=== PATIENT | female | born 1950 | race Caucasian/White ===

== ENCOUNTER → 2017-01-27 | Outpatient (CLI) | payer OTHER ==
[~2017-01-27] MED LIST: ASCO500T PO; ASPI81TA85 PO; ATEN25TA PO; ATOR1TAB19 PO; CALC1TAB60 PO; FISH1000 PO; FLAG500T PO; GARL500C5 PO; GLUC1CAP10 PO; LEVA1TAB2 PO; LEVO112T2 PO; NATU400T PO; THERSOL2 OU; VESI10TA2 PO; VITA200015 PO; VITMTA PO; [UNRECOGNIZED DRUG - CODE] PO
--- NOTE | 2017-02-04 08:07 | SLEEPCENT ---
DATE OF PROCEDURE: 01/27/2017 ORDERED BY: Melisa Langley. Nocturnal polysomnography was performed for evaluation of this patient with sleep apnea syndrome symptoms and snoring. 7 hours and 37 minutes of data were reviewed. There were 362 minutes of sleep identified. Sleep latency was short at 5 minutes Rapid eye movement (REM) latency was delayed at 167 minutes. Sleep architecture showed fragmentation. Progression was maintained. There were 3 REM periods appreciated. Overall sleep efficiency was 80.9%. The patient's EKG showed a sinus rhythm with an average heart rate of 55 beats per minute. EEG showed reasonably normal wave forms for awake and sleep. There were 52 respiratory events identified of 10 seconds in duration or greater for an apnea-hypopnea index of 8.6. The events were primarily obstructive not exclusive to sleep stage, more frequent but not exclusive to the supine posture. Arousals from respiratory events occurred 8.3 times per hour and oxygen desaturations were seen well into the 70s. There was also some limb activity appreciated on the EMG with frequent trains of events. Limb movement arousal index was 8.3. IMPRESSION: 1. Obstructive sleep apnea syndrome, mild (G47.33). Apnea-hypopnea index 8.6. 2. Periodic limb movement disorder (G47.61). Limb movement arousal index 8.3. RECOMMENDATION: The patient should be encouraged to return to the sleep disorder center for pressure therapy. In the interim, alcohol and sedative avoidance should be practiced and caution exercised during the operation of motor vehicles. Pending results of pressure therapy, interventions to reduce the frequency arousal from limb activity may also be helpful. cc: Ramona Mendez MD
== END ==
LOC: M SLEEP 19:38
PROVIDERS: ATTEND Nurse Practitioner Adult Health
DX: G47.30 Sleep apnea, unspecified (principal)

== ENCOUNTER 2017-02-19 10:43 | Observation (INO) | payer MEDICARE, OTHER ==
[~2017-02-19] VITALS: Ht 154.9 cm; Wt 49.8 kg
[~2017-02-19 10:43] MED LIST changes: -ASCO500T PO; -GARL500C5 PO; -GLUC1CAP10 PO; -THERSOL2 OU; -[UNRECOGNIZED DRUG - CODE] PO
[2017-02-19] MEDS ORDERED: NS 1,000 ML IV ONE (11:00)
[2017-02-19 11:29] LABS: BASO % 0.5 % (0.0-1.0); EOS # 0.1 K/mm3 (0.0-0.50); EOS % 1.1 % (0.0-3.0); LARGE UNSTAINED CELL # 0.1 K/mm3 (0.0-0.4); LARGE UNSTAINED CELL % 1.5 % (0.0-4.0); LYMPH # 1.3 K/mm3 (1.5-4.5); LYMPH % 21.8 % (24.0-44.0); MEAN CORPUSCULAR HGB CONC 34.6 g/dl (32.0-36.5); MEAN CORPUSCULAR VOLUME 92.4 fl (80.0-96.0); MONO # 0.3 K/mm3 (0.0-0.8); MONO % 4.8 % (0.0-5.0); NEUTROPHILS # 4.1 K/mm3 (1.8-7.7); NEUTROPHILS % 70.3 % (36.0-66.0); PLATELET COUNT, AUTOMATED 263 k/mm3 (150-450); RED CELL DISTRIBUTION WIDTH 11.7 % (11.5-14.5); WHITE BLOOD COUNT 5.8 K/mm3 (4.0-10.0)
[2017-02-19 11:51] LABS: ALBUMIN 3.6 GM/DL (3.2-5.2); ALBUMIN/GLOBULIN RATIO 1.16 (1.00-1.93); ALKALINE PHOSPHATASE 72 U/L (45-117); ALT/SGPT 27 U/L (12-78); ANION GAP 8 MEQ/L (8-16); AST/SGOT 13 U/L (15-37); BILIRUBIN,DIRECT < 0.1 MG/DL (0.0-0.2); BILIRUBIN,TOTAL 0.4 MG/DL (0.2-1.0); BLOOD UREA NITROGEN 27 MG/DL (7-18); CALCIUM LEVEL 9.2 MG/DL (8.8-10.2); CARBON DIOXIDE LEVEL 30 MEQ/L (21-32); CHLORIDE LEVEL 105 MEQ/L (98-107); CREATININE FOR GFR 0.66 MG/DL (0.55-1.02); GLOMERULAR FILTRATION RATE > 60.0 (>45); GLUCOSE, FASTING 113 MG/DL (80-110); POTASSIUM SERUM 3.5 MEQ/L (3.5-5.1); SODIUM LEVEL 143 MEQ/L (136-145); TOTAL PROTEIN 6.7 GM/DL (6.4-8.2)
--- NOTE | 2017-02-19 12:04 | REP ---
Clinical: Trauma . Comparison: None . Findings: The ventricles, sulci, and cisterns are normal in position and appearance. Marcelino-white differentiation is maintained. No acute intracranial hemorrhage, mass/mass effect, pathology or trauma/injury. No evidence for acute infarction. No extra-axial fluid collection. Calvarium is intact. Paranasal sinuses and mastoid air cells are clear. Impression: Normal noncontrast head CT. No evidence for acute intracranial pathology or trauma/injury. Signed by Jamal Mcclain MD 02/19/2017 11:56 A
[2017-02-19] MEDS ORDERED: THERSOL2 OU (13:17)
[2017-02-19] MEDS ORDERED: [UNRECOGNIZED DRUG - CODE] PO (13:17)
[2017-02-19] MEDS ORDERED: GLUC1CAP10 PO (13:17)
[2017-02-19] MEDS ORDERED: GARL500C5 PO (13:17)
[2017-02-19] MEDS ORDERED: ASCO500T PO (13:17)
[2017-02-19] MEDS ORDERED: ONDANSETRON 4MG/2ML VIAL (J2405) IV PRN (13:45)
--- NOTE | 2017-02-19 14:11 | HPEPDOC ---
General Date of Admission Feb 19, 2017 at 13:36 Primary Care Physician: Ramona Mendez MD Attending Physician: YESSICA MARQUEZ MD Chief Complaint The patient is a 66-year-old female admitted with a reason for visit of Syncope. History of Present Illness 66-year-old female with past medical history of hypertension, dyslipidemia, and hypothyroidism presents to the ER after she had a syncopal episode while in confucianist. The patient states that she was standing for about 20 minutes when she started to feel lightheaded and dizzy. She denied any symptoms of chest pain, palpitations, shortness of breath, abdominal pain, or any preceding symptoms of nausea/vomiting/diarrhea. The patient states that she did not lose consciousness or hit her head, but does note that she felt lightheaded/near syncopal when trying to stand up again. She denies any symptoms of visual blurring, slurring of speech, facial droop, or any numbness/tingling of any extremity. There was no noted tongue biting, jerking movements, or any other seizure-like activity. Home Medications Scheduled (Theratears) 0.25 % Mary, 1 DROP OU BID, (Reported) Bladen Embden Powder (Bladen) Unknown Strength Tab, Unknown Dose PO BID, ( Reported) Ascorbic Acid (Ascorbic Acid) 500 Mg Tab, 500 MG PO BID, (Reported) Aspirin (Aspir-81) 81 Mg Tab, 81 MG PO QHS, (Reported) Atenolol (Atenolol) 25 Mg Tab, 25 MG PO QHS, (Reported) Atorvastatin Calcium (Atorvastatin Calcium) 10 Mg Tab, 10 MG PO QHS, (Reported) Calcium/Vitamin D (Calcium 600+D 600-200 mg-Unit) 1 Tab Tab, 1 TAB PO BID, ( Reported) Cholecalciferol (Vitamin D) 2,000 Unit Tab, 2,000 UNIT PO DAILY, (Reported) Fish Oil (Fish Oil) 1,000 Mg Cap, 1,000 MG PO BID, (Reported) Garlic (Garlic) Unknown Strength Cap, Unknown Dose PO BID, (Reported) Glucosamine Chondroitin (Glucosamine Chondroitin) 1 Cap Cap, 1 CAP PO BID, ( Reported) Levothyroxine Sodium (Synthroid) 112 Mcg Tab, 112 MCG PO DAILY, (Reported) Multivitamins *[facility] STOCKED* (Thera M Plus *[facility] STOCKED*) 1 Tab Tab, 1 TAB PO DAILY, (Reported) Solifenacin Succinate (Vesicare) 10 Mg Tab, 10 MG PO DAILY, (Reported) Allergies Coded Allergies: Codeine (Verified Adverse Reaction, Mild, N/V, 09/11/12) Guaifenesin (Verified Adverse Reaction, Mild, N/V, 09/11/12) Phenylephrine (Verified Adverse Reaction, Mild, N/V, 09/11/12) Phenylpropanolamine (Verified Adverse Reaction, Mild, N/V, 09/11/12) Methylparaben (Unverified Adverse Reaction, Unknown, N/V, 02/19/17) Propylparaben (Unverified Adverse Reaction, Unknown, N/V, 02/19/17) Past Medical History Medical History As noted in HPI. Surgical History Hysterectomy, tubal ligation, vaginal wall repair, thyroidectomy. 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 Lives with her . Review of Symptoms Other systems 10 point review of systems negative unless otherwise specified in HPI. Physical Examination General Exam: Positive: Alert, Cooperative, No Acute Distress ENT Exam: Positive: Atraumatic, Mucous membr. moist/pink Neck Exam: Negative: JVD Chest Exam: Positive: Clear to auscultation, Normal air movement Heart Exam: Positive: Rate Normal, Normal S1, Normal S2 Telemetry: Positive: Sinus Abdomen Exam: Positive: Soft, Negative: Tenderness Extremity Exam: Negative: Tenderness, Swelling Psych Exam: Positive: Oriented x 3 Vital Signs Vital Signs Date Time Temp Pulse Resp B/P (MAP) Pulse Ox O2 Delivery O2 Flow Rate FiO2 02/19/17 13:09 76 99 02/19/17 12:54 171/79 (109) 02/19/17 11:19 Room Air 02/19/17 10:44 97.6 18 Laboratory Data Labs 24H Laboratory Tests 2 02/19/17 11:17: White Blood Count 5.8, Red Blood Count 4.53, Hemoglobin 14.5, Hematocrit 41.8, Mean Corpuscular Volume 92.4, Mean Corpuscular Hemoglobin 32.0, Mean Corpuscular Hemoglobin Concent 34.6, Red Cell Distribution Width 11.7, Platelet Count 263, Neutrophils (%) (Auto) 70.3H, Lymphocytes (%) (Auto) 21.8L, Monocytes (%) (Auto) 4.8, Eosinophils (%) (Auto) 1.1, Basophils (%) (Auto) 0.5, Neutrophils # (Auto) 4.1, Lymphocytes # (Auto) 1.3L, Monocytes # (Auto) 0.3, Eosinophils # (Auto) 0.1, Basophils # (Auto) 0.0, Large Unclassified Cells % 1.5 , Large Unclassified Cells # 0.1, Anion Gap 8, Glomerular Filtration Rate > 60.0 , Calcium Level 9.2, Aspartate Amino Transf (AST/SGOT) 13L, Alanine Aminotransferase (ALT/SGPT) 27, Alkaline Phosphatase 72, Total Bilirubin 0.4, Direct Bilirubin < 0.1, Total Creatine Kinase 73, Creatine Kinase MB 2.3, Creatine Kinase MB Relative Index 3.15, Troponin I < 0.02, Total Protein 6.7, Albumin 3.6, Albumin/Globulin Ratio 1.16, Lipase 100 CBC/BMP Laboratory Tests 02/19/17 11:17 Red Blood Count 4.53, Mean Corpuscular Volume 92.4, Mean Corpuscular Hemoglobin 32.0, Mean Corpuscular Hemoglobin Concent 34.6, Red Cell Distribution Width 11.7 , Neutrophils (%) (Auto) 70.3 H, Lymphocytes (%) (Auto) 21.8 L, Monocytes (%) ( Auto) 4.8, Eosinophils (%) (Auto) 1.1, Basophils (%) (Auto) 0.5, Neutrophils # ( Auto) 4.1, Lymphocytes # (Auto) 1.3 L, Monocytes # (Auto) 0.3, Eosinophils # ( Auto) 0.1, Basophils # (Auto) 0.0 Plan / VTE VTE Prophylaxis Ordered?: Yes Plan Plan Syncopal Episode likely 2/[address] Head with no acute findings No acute neurological deficits on Exam EKG with no acute ST-T Changes Initial troponin negative, will serially trend Orthostatics ordered No history of any cardiac disease We will cont to observe the patient overnight on telemetry Hypothyroidism Continue levothyroxine Dyslipidemia Continue statin Vitamin D deficiency Continue vitamin supplementation DVT prophylaxis Lovenox The patient will be admitted under the service of Dr. Marquez, who will begin to follow the patient on 02/20/17 at 7 AM. VIKY SCOTT MD Feb 19, 2017 14:11
[2017-02-19 15:38] VITALS: BP 152/76
[2017-02-19] MEDS: ACETAMINOPHEN TAB 650MG DOSE (2X325MG) PO PRN (16:36)
[2017-02-19] MEDS ORDERED: SLF 3 ML SYR IV PRN (17:30)
--- NOTE | 2017-02-19 18:23 | ECGEPIP ---
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
[2017-02-19 20:46] VITALS: BP 123/65
[2017-02-19] MEDS: ASCORBIC ACID 500 MG TAB PO SCH (21:00)
[2017-02-19] MEDS: OMEGA-3 1050MG CAPSULE PO SCH (21:00)
[2017-02-19] MEDS: CALCIUM/VITAMIN D 500 MG TAB PO SCH (21:00)
[2017-02-19] MEDS ORDERED: ASPIRIN 81 MG ENTERIC TAB PO SCH (21:00)
[2017-02-19] MEDS ORDERED: ENOXAPARIN 30 MG/0.3 ML SYR (J1650) SC SCH (21:00)
[2017-02-19] MEDS ORDERED: ATORVASTATIN 10 MG TAB PO SCH (21:00)
[2017-02-19] MEDS: SLF 3 ML SYR IV SCH (21:04)
[2017-02-20 00:20] VITALS: BP 124/69
[2017-02-20 04:12] VITALS: BP 129/63
[2017-02-20] MEDS: SLF 3 ML SYR IV SCH (04:17)
[2017-02-20] MEDS: ACETAMINOPHEN TAB 650MG DOSE (2X325MG) PO PRN (04:17)
[2017-02-20 05:10] LABS: MEAN CORPUSCULAR HEMOGLOBIN 31.5 pg (27.0-33.0); MEAN CORPUSCULAR VOLUME 95.3 fl (80.0-96.0); RED CELL DISTRIBUTION WIDTH 12.2 % (11.5-14.5); WHITE BLOOD COUNT 6.6 K/mm3 (4.0-10.0)
[2017-02-20 05:26] LABS: ALBUMIN 3.1 GM/DL (3.2-5.2); ALBUMIN/GLOBULIN RATIO 1.07 (1.00-1.93); ALKALINE PHOSPHATASE 66 U/L (45-117); ALT/SGPT 23 U/L (12-78); ANION GAP 8 MEQ/L (8-16); AST/SGOT 11 U/L (15-37); BILIRUBIN,TOTAL 0.2 MG/DL (0.2-1.0); BLOOD UREA NITROGEN 21 MG/DL (7-18); CALCIUM LEVEL 7.6 MG/DL (8.8-10.2); CARBON DIOXIDE LEVEL 24 MEQ/L (21-32); CHLORIDE LEVEL 113 MEQ/L (98-107); CREATININE FOR GFR 0.52 MG/DL (0.55-1.02); GLOMERULAR FILTRATION RATE > 60.0 (>45); GLUCOSE, FASTING 100 MG/DL (80-110); MAGNESIUM LEVEL 2.2 MG/DL (1.8-2.4); POTASSIUM SERUM 3.8 MEQ/L (3.5-5.1); SODIUM LEVEL 145 MEQ/L (136-145)
[2017-02-20] MEDS ORDERED: LEVOTHYROXINE 112MCG TABLET (0.112MG) PO SCH (06:00)
[2017-02-20 08:00] VITALS: BP_SYST 131; BP_SYST 137; BP_DIAS 79; BP_DIAS 81; BP_DIAS 83
[2017-02-20] MEDS: ASCORBIC ACID 500 MG TAB PO SCH (08:56)
[2017-02-20] MEDS: OMEGA-3 1050MG CAPSULE PO SCH (08:56)
[2017-02-20] MEDS: CALCIUM/VITAMIN D 500 MG TAB PO SCH (08:56)
[2017-02-20] MEDS ORDERED: SOLIFENACIN 5 MG TAB PO SCH (09:00)
[2017-02-20] MEDS ORDERED: MULTIVITAMINS/MINERALS THERAP 1 TAB PO SCH (09:00)
[2017-02-20] MEDS ORDERED: VITAMIN D 1,000 INTERNATIONAL UNITS TABLET PO SCH (09:00)
--- NOTE | 2017-02-20 13:11 | DSES ---
DATE OF ADMISSION: 02/19/2017 DATE OF DISCHARGE: 02/20/2017 DISCHARGE DIAGNOSIS: Vasovagal syncope. SECONDARY DIAGNOSES: Vitamin D deficiency. Hypothyroidism. Dyslipidemia. HOSPITAL COURSE: The patient is a 66-year-old female who was standing and singing in sabianist, she did not know the rest of the song, she was feeling distressed, it was quite liner helper the sabianist. She closed her eyes trying to listen to the lyrics and began to feel lightheaded as if she is going to fall. She attempted to exit the sabianist, but when she got to the door she lowered herself to the ground. She began to feel better and then attempted to stand up and then once again felt unwell and lowered herself to the ground. Her brought her to the emergency room, but by the time she arrived, her symptoms had completely resolved. She denied any prodromal symptoms. No chest pain, shortness of breath, fevers, chills, nausea, vomiting or diarrhea. She denied any changes in her bowel or bladder habits. There was no loss of consciousness, no head trauma. No tongue biting. No incontinence. She experienced complete return to her baseline. She was not orthostatic. SUBJECTIVE: This morning, the patient reports she is feeling well. She denies any complaints whatsoever. OBJECTIVE: VITAL SIGNS: Temperature 97.3, pulse 67, respiratory rate 19, blood pressure 131/83, while standing, and while supine 137/79 with a heart rate of 98 and 99 respectively. She was 100% on room air. GENERAL: She is a pleasant female lying in bed at a 60 degree angle. She is not in any acute distress whatsoever. HEENT: Cranial nerves II through XII are grossly intact. She has moist mucous membranes. No elevation of central venous pressure (CVP). CARDIOVASCULAR EXAM: S1 and S2 regular. No distant heart sounds appreciated. RESPIRATORY EXAM: Clear. ABDOMINAL EXAM: Benign. EXTREMITIES: No clubbing, cyanosis, or edema. LABORATORY STUDIES: WBC 6.6, hemoglobin 13, platelet count 228. Chemistry panel: Sodium 145, potassium 3.8, chloride 113, bicarb 24, BUN 21, creatinine 0.7. Liver function tests are within normal limits. She had a normal lipase. Two sets of cardiac enzymes are negative. She did have CT scan of her head which was a normal noncontrast of the head. ASSESSMENT/PLAN: This is a 66-year-old with likely a vasovagal syncopal episode. PROBLEMS: 1. Vasovagal syncope episode. She has been monitored on telemetry. She had no abnormalities on her EKG. She had a complete return to her baseline. She is not orthostatic. I have advised her to avoid driving until she can followup with her primary care physician and she should followup with them in the next one week and I have advised her to hold atenolol until that time as well. I have advised her to return to the ER if her symptoms once again recur or worsen. She did have not have any cardiac symptoms, seizure like symptoms whatsoever. No new medications or suspicious medications. No fevers or any obvious sources of infection. 2. Hypothyroidism. She was continued on levothyroxine. 3. Dyslipidemia. She was continued on her statin. 4. Hypertension. As outlined above. 5. Vitamin D deficiency. She is on supplementation. 6. Deep vein thrombosis (DVT) prophylaxis. She was on Lovenox. DISPOSITION: The patient is being discharged home to the care of her family. She is at her functional baseline and independent of her activities of daily living. Followup with her primary care physician as soon as possible. Her activity is as tolerated. Avoid driving until she is sees her primary care physician. Her diet is as prior to admission. She is to return to the ER if her symptoms worsen. MEDICATIONS AT TIME OF DISCHARGE: As per the patient: - vitamin C - aspirin 81 mg at bedtime - atorvastatin 10 mg at bedtime - calcium with vitamin D 600-200 mg/units one tablet twice a day - vitamin D 2000 units daily - fish oil 1 gram daily twice a day - garlic as per the patient - glucosamine chondroitin as per the patient - levothyroxine 112 mcg daily - multivitamin one tablet daily - VESIcare 10 mg daily - TheraTears 0.25% drop each eye twice daily Greater than 30 minutes spent organizing disposition.
[2017-02-21] MEDS ORDERED: INFLUENZA VIRUS VACCINE HIGH DOSE 0.5 ML SYRINGE (90662) IM ONE (09:00)
== END 2017-02-20 12:10 | disposition home or self-care (01) ==
LOC: M ED 10:43 → M ED INP 13:36 → M PCU 15:35
PROVIDERS: ADMIT Internal Medicine; ATTEND Internal Medicine
DX: R55 Syncope and collapse (principal); E55.9 Vitamin D deficiency, unspecified; E03.9 Hypothyroidism, unspecified; E78.5 Hyperlipidemia, unspecified; Z79.82 Long term (current) use of aspirin; Z79.899 Other long term (current) drug therapy; Z88.8 Allergy status to other drugs, medicaments and biological substances
CPT/HCPCS: 36415; 70450; 80048; 80053; 80076; 82550; 82553; 83690; 83735; 84484; 85025; 85027; 93005; 93041; 96360; 96372; 99285; G0378; J1650

== ENCOUNTER → 2017-03-10 | Outpatient (CLI) | payer OTHER ==
[~2017-03-10] MED LIST changes: +ASCO500T PO; +GARL500C5 PO; +GLUC1CAP10 PO; +THERSOL2 OU; +[UNRECOGNIZED DRUG - CODE] PO
--- NOTE | 2017-03-15 05:42 | SLEEPCENT ---
DATE OF PROCEDURE: 03/10/2017 ORDERED BY: SALOMON Denney Nocturnal polysomnography was performed for the titration of pressure therapy in this patient with obstructive sleep apnea syndrome, apnea hypopnea index of 8.6. For testing, patient was fit with a Lim [employer], Simplus full face mask of small size. 4 cm of water pressure were applied to the circuit and the lights were extinguished. 7 hours and 23 minutes of data were reviewed. There were 233 minutes of sleep identified. Sleep latency was normal at 13 minutes. Rapid eye movement (REM) latency was prolonged at 242 minutes. Sleep architecture remained fragmented throughout much of the study. There was one period of REM in the middle portio of the test. Overall sleep efficiency was 53.8%. EKG showed a sinus rhythm with an average heart rate of 68 beats per minute. EEG showed some coarsening alpha intrusion into non REM stages. No focal events were identified. Multiple continuous positive airway pressure (CPAP) pressures were attempted throughout the study. Best sleep was seen on a CPAP pressure of +12 with which pressure the patient did sleep through REM. There was significant persistent limb activity with a limb movement arousal index of 20.6. IMPRESSION: 1. Obstructive sleep apnea syndrome (G47.33). 2. Periodic limb movement disorder (G47.61). RECOMMENDATION: Nightly use of pressure therapy at 12 cm of water appears to be optimal for palliation of respiratory events. Given the frequency of limb activity, interventions to reduce the frequency arousal from limb movements should also be helpful.
== END ==
LOC: M SLEEP 19:44
PROVIDERS: ATTEND Nurse Practitioner Adult Health
DX: G47.33 Obstructive sleep apnea (adult) (pediatric) (principal); Z53.9 Procedure and treatment not carried out, unspecified reason

== ENCOUNTER → 2017-04-21 | Outpatient (CLI) | payer OTHER ==
--- NOTE | 2017-04-21 10:29 | REP ---
Digital diagnostic unilateral left breast mammography with CAD: History: Screening mammography from April 10, 2017 is BIRADS category 0 because of a possible nodular neodensity in the left breast medially and just subareolar in position. Diagnostic imaging was recommended. Comparison is also made with prior mammography from April 08, 2016 and April 06, 2015. Findings: Magnified focal spot compression CC, MLO and true MLO views of the left breast were obtained. These demonstrate that the area in question compresses away to stromal elements which are felt to be unchanged from comparison mammography. No nodular neodensity is evident. There are two needle biopsy marker clips in the subareolar zone of the left breast laterally as before. Impression: BIRADS category 2 benign left breast imaging. Repeat screening mammography recommended 1 year. BI-RADS/ACR category 2 mammogram. Benign finding(s). Routine annual screening mammography (for women over age 40). This mammogram was interpreted with the aid of an FDA-approved computer-aided detection system. The patient states she had a clinical breast exam in December 2016 The patient letter being requested is m1. Signed by Srikanth Ivey MD 04/21/2017 01:12 P
== END ==
LOC: M RAD 09:39
PROVIDERS: ATTEND Obstetrics & Gynecology
DX: Z12.31 Encounter for screening mammogram for malignant neoplasm of breast (principal)

== ENCOUNTER 2017-11-17 05:40 | Inpatient (IN) | payer OTHER ==
[2017-11-17] MEDS ORDERED: ceFAZolin 2 GM/D5W 50 ML IV BAG (J0690 PER 500MG) As Ordered (05:55)
[2017-11-17] MEDS: LR 1,000 ML IV ×4 (06:49→22:50)
[2017-11-17] MEDS ORDERED: fentaNYL 100 MCG/2 ML INJECTION (J3010) As Ordered ×2 (06:50→06:59)
[2017-11-17] MEDS ORDERED: MIDAZOLAM INJ 2 MG/2 ML VIAL (J2250) As Ordered ×2 (06:50→07:00)
[2017-11-17] MEDS ORDERED: LIDOCAINE 2% INJ 100 MG/5 ML SDV (FOR ANES.) As Ordered (06:58)
[2017-11-17] MEDS ORDERED: PROPOFOL 500 MG/50 ML VIAL As Ordered (06:59)
[2017-11-17] MEDS ORDERED: BUPIVACAINE/DEXTROSE 0.75% 2 ML AMP As Ordered (07:04)
[2017-11-17] MEDS: fentaNYL 100 MCG/2 ML INJECTION (J3010) IV (07:13)
[2017-11-17] MEDS: MIDAZOLAM INJ 2 MG/2 ML VIAL (J2250) IV (07:13)
[2017-11-17] MEDS: ceFAZolin 1GM INJ (J0690 PER 500MG) As Ordered (08:19)
[2017-11-17] MEDS: EPINEPHrine INJ 1 MG/ML 1ML AMP As Ordered (08:44)
[2017-11-17] MEDS: TRANEXAMIC ACID 100 MG/ML 10ML VIAL As Ordered (08:44)
[2017-11-17] MEDS: BUPIVACAINE LIPOSOME/PF 1.3% 20 ML VIAL (13.3MG/ML)(EXPAREL) As Ordered (08:45)
[2017-11-17] MEDS: VITAMIN D 1,000 INTERNATIONAL UNITS TABLET PO (09:00)
[2017-11-17] MEDS: MULTIVITAMINS/MINERALS THERAP 1 TAB PO (09:00)
[2017-11-17] MEDS: SOLIFENACIN 5 MG TAB PO (09:00)
[2017-11-17] MEDS: ASCORBIC ACID 500 MG TAB PO ×2 (09:00→21:38)
[2017-11-17] MEDS ORDERED: MORPHINE 1MG/ML IN 0.9% NACL 100ML IV BAG As Ordered (09:04)
[2017-11-17] MEDS ORDERED: ONDANSETRON 4MG/2ML VIAL (J2405) IV ×2 (09:30→09:45)
[2017-11-17] MEDS ORDERED: FLEET ENEMA PR (09:30)
[2017-11-17] MEDS ORDERED: PERCOCET 5MG/325MG TAB PO (09:30)
[2017-11-17] MEDS ORDERED: fentaNYL 100 MCG/2 ML INJECTION (J3010) IV (09:30)
[2017-11-17] MEDS ORDERED: ACETAMINOPHEN TAB 650MG DOSE (2X325MG) PO (09:30)
[2017-11-17] MEDS ORDERED: HYDROMORPHONE HCL 0.5 MG/ 0.5 ML SYRINGE (J1170 PER 1) IV (09:30)
[2017-11-17] MEDS ORDERED: NALBUPHINE HCL 10 MG/ML AMP (J2300) IV (09:45)
[2017-11-17] MEDS ORDERED: NALOXONE INJ 0.4 MG/1 ML VIAL (J2310) IV (09:45)
[2017-11-17] MEDS ORDERED: diphenhydrAMINE INJ 50MG/ML VIAL (J1200) IV (09:45)
[2017-11-17] MEDS ORDERED: MORPHINE 1MG/ML IN 0.9% NACL 100ML IV BAG IV (09:45)
[2017-11-17] MEDS ORDERED: EPIDURAL/PCA KEYS XX (09:45)
[2017-11-17] MEDS ORDERED: dexameTHASONE 10 MG/1 ML VIAL PRES.FREE (J1100) (11:20)
[2017-11-17] MEDS ORDERED: ROPIvacaine 0.5% 30 ML INJECTION (J2795 PER 1MG) (11:20)
[2017-11-17] MEDS ORDERED: LIDOCAINE 1% MDV 20ML VIAL (11:20)
[2017-11-17] MEDS: ONDANSETRON 4MG/2ML VIAL (J2405) IV (16:07)
[2017-11-17] MEDS: ATORVASTATIN 10 MG TAB PO (21:38)
[2017-11-17] MEDS: ATENOLOL 25 MG TAB PO (21:38)
[2017-11-18] MEDS: ONDANSETRON 4MG/2ML VIAL (J2405) IV (04:41)
[2017-11-18] MEDS: LEVOTHYROXINE 100MCG TABLET (0.1MG) PO (04:41)
[2017-11-18 07:09] LABS: BASO % 0.1 % (0.0-1.0); HEMATOCRIT 28.9 % (36.0-47.0); HEMOGLOBIN 9.4 g/dl (12.0-15.5); IMMATURE GRANULOCYTE % 0.4 % (0-3.0); LYMPH # 0.8 10^3/uL (1.5-4.5); LYMPH % 6.7 % (24.0-44.0); MEAN CORPUSCULAR HEMOGLOBIN 30.6 pg (27.0-33.0); MEAN CORPUSCULAR HGB CONC 32.5 g/dl (32.0-36.5); MEAN CORPUSCULAR VOLUME 94.1 fl (80.0-96.0); MONO # 1.5 10^3/uL (0.0-0.8); MONO % 12.8 % (0.0-5.0); PLATELET COUNT, AUTOMATED 206 10^3/uL (150-450); RED BLOOD COUNT 3.07 10^6/uL (4.00-5.40); RED CELL DISTRIBUTION WIDTH 12.4 % (11.5-14.5); WHITE BLOOD COUNT 11.3 10^3/uL (4.0-10.0)
[2017-11-18 07:23] LABS: ANION GAP 6 MEQ/L (8-16); BLOOD UREA NITROGEN 32 MG/DL (7-18); CARBON DIOXIDE LEVEL 29 MEQ/L (21-32); CHLORIDE LEVEL 105 MEQ/L (98-107); CREATININE FOR GFR 0.89 MG/DL (0.55-1.30); GLOMERULAR FILTRATION RATE > 60.0 (>45); GLUCOSE, FASTING 151 MG/DL (70-100); INR 1.07; POTASSIUM SERUM 3.9 MEQ/L (3.5-5.1); SODIUM LEVEL 140 MEQ/L (136-145)
[2017-11-18] MEDS: VITAMIN D 1,000 INTERNATIONAL UNITS TABLET PO (08:50)
[2017-11-18] MEDS: RIVAROXABAN 10 MG TAB (XARELTO) PO (08:50)
[2017-11-18] MEDS: ACETAMINOPHEN 500 MG TAB PO ×3 (08:51→22:32)
[2017-11-18] MEDS: SENOKOT S TAB PO ×2 (08:52→20:31)
[2017-11-18] MEDS: MOM 30ML SUSPENSION UDC PO (08:52)
[2017-11-18] MEDS: ASCORBIC ACID 500 MG TAB PO ×2 (08:52→20:31)
[2017-11-18] MEDS: MIRALAX *UNIT DOSE* 17GM PACKET PO (08:52)
[2017-11-18] MEDS: MULTIVITAMINS/MINERALS THERAP 1 TAB PO (13:05)
[2017-11-18] MEDS: SOLIFENACIN 5 MG TAB PO (13:06)
[2017-11-18] MEDS: traMADol 50 MG TAB PO ×2 (13:09→20:39)
[2017-11-18] MEDS: ATORVASTATIN 10 MG TAB PO (20:31)
[2017-11-18] MEDS: ATENOLOL 25 MG TAB PO (20:32)
[2017-11-19] MEDS: traMADol 50 MG TAB PO ×3 (03:29→20:47)
[2017-11-19] MEDS: ACETAMINOPHEN 500 MG TAB PO ×3 (05:42→22:27)
[2017-11-19] MEDS: LEVOTHYROXINE 100MCG TABLET (0.1MG) PO (05:42)
[2017-11-19 06:35] LABS: BASO % 0.3 % (0.0-1.0); EOS # 0.1 10^3/uL (0.0-0.50); EOS % 1.2 % (0.0-3.0); HEMATOCRIT 27.6 % (36.0-47.0); HEMOGLOBIN 9.1 g/dl (12.0-15.5); IMMATURE GRANULOCYTE % 0.4 % (0-3.0); LYMPH # 1.5 10^3/uL (1.5-4.5); LYMPH % 18.9 % (24.0-44.0); MEAN CORPUSCULAR HEMOGLOBIN 31.1 pg (27.0-33.0); MEAN CORPUSCULAR VOLUME 94.2 fl (80.0-96.0); MONO % 12.5 % (0.0-5.0); NEUTROPHILS # 5.2 10^3/uL (1.8-7.7); NEUTROPHILS % 66.7 % (36.0-66.0); PLATELET COUNT, AUTOMATED 170 10^3/uL (150-450); RED BLOOD COUNT 2.93 10^6/uL (4.00-5.40); RED CELL DISTRIBUTION WIDTH 12.3 % (11.5-14.5); WHITE BLOOD COUNT 7.7 10^3/uL (4.0-10.0)
[2017-11-19 06:51] LABS: ANION GAP 3 MEQ/L (8-16); BLOOD UREA NITROGEN 19 MG/DL (7-18); CALCIUM LEVEL 7.9 MG/DL (8.8-10.2); CARBON DIOXIDE LEVEL 33 MEQ/L (21-32); CHLORIDE LEVEL 105 MEQ/L (98-107); CREATININE FOR GFR 0.61 MG/DL (0.55-1.30); GLOMERULAR FILTRATION RATE > 60.0 (>45); GLUCOSE, FASTING 105 MG/DL (70-100); MAGNESIUM LEVEL 2.5 MG/DL (1.8-2.4); POTASSIUM SERUM 3.8 MEQ/L (3.5-5.1); SODIUM LEVEL 141 MEQ/L (136-145)
[2017-11-19 06:52] LABS: INR 1.22; PROTHROMBIN TIME 15.6 SECONDS (12.4-14.5)
[2017-11-19] MEDS: MOM 30ML SUSPENSION UDC PO (09:01)
[2017-11-19] MEDS: MULTIVITAMINS/MINERALS THERAP 1 TAB PO (09:01)
[2017-11-19] MEDS: SENOKOT S TAB PO ×2 (09:01→20:45)
[2017-11-19] MEDS: RIVAROXABAN 10 MG TAB (XARELTO) PO (09:01)
[2017-11-19] MEDS: MIRALAX *UNIT DOSE* 17GM PACKET PO (09:01)
[2017-11-19] MEDS: ASCORBIC ACID 500 MG TAB PO ×2 (09:01→20:45)
[2017-11-19] MEDS: ONDANSETRON 4MG/2ML VIAL (J2405) IV (09:01)
[2017-11-19] MEDS: VITAMIN D 1,000 INTERNATIONAL UNITS TABLET PO (09:01)
[2017-11-19] MEDS: SOLIFENACIN 5 MG TAB PO (09:02)
[2017-11-19] MEDS: ONDANSETRON 4 MG TAB (S0181) PO (13:07)
[2017-11-19] MEDS: ATORVASTATIN 10 MG TAB PO (20:44)
[2017-11-20] MEDS: traMADol 50 MG TAB PO ×4 (01:11→16:36)
[2017-11-20] MEDS: ACETAMINOPHEN 500 MG TAB PO ×2 (06:40→14:23)
[2017-11-20] MEDS: LEVOTHYROXINE 100MCG TABLET (0.1MG) PO (06:40)
[2017-11-20 07:22] LABS: BASO % 0.3 % (0.0-1.0); EOS # 0.2 10^3/uL (0.0-0.50); EOS % 2.4 % (0.0-3.0); HEMATOCRIT 27.2 % (36.0-47.0); HEMOGLOBIN 8.8 g/dl (12.0-15.5); IMMATURE GRANULOCYTE % 0.3 % (0-3.0); LYMPH # 1.3 10^3/uL (1.5-4.5); LYMPH % 21.2 % (24.0-44.0); MEAN CORPUSCULAR HEMOGLOBIN 30.7 pg (27.0-33.0); MEAN CORPUSCULAR HGB CONC 32.4 g/dl (32.0-36.5); MEAN CORPUSCULAR VOLUME 94.8 fl (80.0-96.0); MONO # 0.6 10^3/uL (0.0-0.8); MONO % 10.4 % (0.0-5.0); NEUTROPHILS % 65.4 % (36.0-66.0); PLATELET COUNT, AUTOMATED 181 10^3/uL (150-450); RED BLOOD COUNT 2.87 10^6/uL (4.00-5.40); RED CELL DISTRIBUTION WIDTH 12.1 % (11.5-14.5); WHITE BLOOD COUNT 6.2 10^3/uL (4.0-10.0)
[2017-11-20 07:39] LABS: PROTHROMBIN TIME 14.4 SECONDS (12.4-14.5)
[2017-11-20 07:43] LABS: ANION GAP 4 MEQ/L (8-16); BLOOD UREA NITROGEN 13 MG/DL (7-18); CARBON DIOXIDE LEVEL 30 MEQ/L (21-32); CHLORIDE LEVEL 106 MEQ/L (98-107); CREATININE FOR GFR 0.59 MG/DL (0.55-1.30); GLOMERULAR FILTRATION RATE > 60.0 (>45); GLUCOSE, FASTING 96 MG/DL (70-100); MAGNESIUM LEVEL 2.4 MG/DL (1.8-2.4); POTASSIUM SERUM 4.3 MEQ/L (3.5-5.1); SODIUM LEVEL 140 MEQ/L (136-145)
[2017-11-20] MEDS: MIRALAX *UNIT DOSE* 17GM PACKET PO (09:29)
[2017-11-20] MEDS: MULTIVITAMINS/MINERALS THERAP 1 TAB PO (09:30)
[2017-11-20] MEDS: SOLIFENACIN 5 MG TAB PO (09:30)
[2017-11-20] MEDS: SENOKOT S TAB PO (09:30)
[2017-11-20] MEDS: VITAMIN D 1,000 INTERNATIONAL UNITS TABLET PO (09:30)
[2017-11-20] MEDS: ONDANSETRON 4 MG TAB (S0181) PO ×2 (09:30→14:23)
[2017-11-20] MEDS: ASCORBIC ACID 500 MG TAB PO (09:30)
[2017-11-20] MEDS: RIVAROXABAN 10 MG TAB (XARELTO) PO (09:30)
[2017-11-20] MEDS: MOM 30ML SUSPENSION UDC PO (09:30)
== END 2017-11-20 17:05 | disposition home or self-care (01) | DRG 470 ==
LOC: M OR 05:40 → M MS5PR 14:06
PROC: 0SRC0J9 Replacement of Right Knee Joint with Synthetic Substitute, Cemented, Open Approach (ICD-10-PCS; principal; 2017-11-17 07:30)
DX: M17.11 Unilateral primary osteoarthritis, right knee (principal); N32.81 Overactive bladder; E03.9 Hypothyroidism, unspecified; E78.00 Pure hypercholesterolemia, unspecified; I10 Essential (primary) hypertension; Z91.040 Latex allergy status; Z88.5 Allergy status to narcotic agent; Z79.82 Long term (current) use of aspirin; Z79.899 Other long term (current) drug therapy; Z90.710 Acquired absence of both cervix and uterus

== ENCOUNTER 2017-11-26 12:39 | Emergency (ER) | payer OTHER ==
[2017-11-26] MEDS: traMADol 50 MG TAB PO (13:53)
== END 2017-11-26 13:59 | disposition home or self-care (01) ==
LOC: M ED 12:39
DX: G89.18 Other acute postprocedural pain (principal); Z88.5 Allergy status to narcotic agent; Z88.8 Allergy status to other drugs, medicaments and biological substances; Z79.890 Hormone replacement therapy
CPT/HCPCS: 99282

== ENCOUNTER → 2018-04-24 | Outpatient (CLI) | payer OTHER | LOC: M RAD 10:44 | DX: Z12.31 Encounter for screening mammogram for malignant neoplasm of breast (principal); Z92.0 Personal history of contraception; Z92.23 Personal history of estrogen therapy; Z92.89 Personal history of other medical treatment | CPT/HCPCS: 77067 ==

== ENCOUNTER → 2019-04-30 | Outpatient (CLI) | payer OTHER ==
[~2019-04-30] MED LIST changes: +AZO1TAB PO; +CALC1TAB26 PO; +CINN500C9 PO; +FISH5CAP PO; +GLUC100020 PO; +SYNT100T PO; +TRAM50TA2 PO; +TURM500C3 PO; +TYLE500T78 PO; +XARE10TA PO
--- NOTE | 2019-04-30 12:55 | REPMRS ---
Patient History The patient states she had a clinical breast exam in 2018. No known family history of cancer. Benign US guided breast biopsy of both breasts, January 24, 2013. Took hormonal contraceptives for 5 years. Took estrogen for 15 years beginning at age 46. 3D TOMOSYNTHESIS WAS PERFORMED. [facility]%. Digital Mammo Screening Bilat: April 30, 2019 - Exam #: [id number] Bilateral CC and MLO view(s) were taken. Technologist: Gabby De Luna, Technologist Prior study comparison: April 24, 2018, bilateral digital mammo screening bilat performed at [facility]. April 21, 2017, bilateral digital mammo screening bilat performed at [facility]. FINDINGS: The breast tissue is heterogeneously dense. This may lower the sensitivity of mammography. There has been no change in the appearance of the mammogram from the prior studies. There is a moderate amount of residual fibroglandular tissue which is fairly symmetric. There is no interval development of dominant mass, areas of architectural distortion, or clustered microcalcification typical of malignancy. Assessment: BI-RADS/ACR category 1 mammogram. Negative Mammogram. Recommendation Routine screening mammogram in 1 year (for women over age 40). This mammogram was interpreted with the aid of an FDA-approved computer-aided dectection system. Electronically Signed By: Everett Marcelino MD 04/30/19 [id number]
== END ==
LOC: M RAD 12:11
PROVIDERS: ATTEND Obstetrics & Gynecology
DX: Z12.31 Encounter for screening mammogram for malignant neoplasm of breast (principal)

== ENCOUNTER 2020-01-30 07:45 | Day surgery (SDC) | payer MEDICARE, OTHER ==
[~2020-01-30] VITALS: Ht 152.4 cm; Wt 48.1 kg
[~2020-01-30 07:45] MED LIST changes: +ACET-683 PO; -ASPI81TA85 PO; +ASPI81TA86 PO; +AZO YEAST; +CINN500C2 PO; +D31000TA2 PO; +GARL500C2 PO; +OMEG12003 PO; +[UNRECOGNIZED DRUG - CODE] PO
[2020-01-30] MEDS ORDERED: propofoL 200 MG/20 ML VIAL As Ordered ONE ×2 (08:51→09:09)
[2020-01-30] MEDS ORDERED: NS 1,000 ML IV ONE (09:00)
[2020-01-30 09:41] VITALS: BP 137/77
--- NOTE | 2020-02-19 11:29 | ROOR ---
Patient Name: Eva Andrade Procedure Date: 01/30/2020 8:43 AM Date of : 1950 Age: 69 Room: [facility] Gender: Female Note Status: Finalized Procedure: Colonoscopy Indications: Screening in patient at increased risk: Colorectal cancer in mother 60 or older Providers: Devan Dsouza Jr, MD Referring MD: Ramona Mendez MD Requesting Provider: Medicines: Propofol per Anesthesia Complications: No immediate complications. Procedure: Pre-Anesthesia Assessment: - Prior to the procedure, a History and Physical was performed, and patient medications and allergies were reviewed. The patient is competent. The risks and benefits of the procedure and the sedation options and risks were discussed with the patient. All questions were answered and informed consent was obtained. Patient identification and proposed procedure were verified by the physician and the nurse in the pre-procedure area and in the procedure room. Mental Status Examination: alert and oriented. Airway Examination: normal oropharyngeal airway and neck mobility. Respiratory Examination: clear to auscultation. CV Examination: normal. ASA Grade Assessment: II - A patient with mild systemic disease. After reviewing the risks and benefits, the patient was deemed in satisfactory condition to undergo the procedure. The anesthesia plan was to use moderate sedation / analgesia (conscious sedation). Immediately prior to administration of medications, the patient was re-assessed for adequacy to receive sedatives. The heart rate, respiratory rate, oxygen saturations, blood pressure, adequacy of pulmonary ventilation, and response to care were monitored throughout the procedure. The physical status of the patient was re-assessed after the procedure. The Colonoscope was introduced through the anus and advanced to the cecum, identified by appendiceal orifice and ileocecal valve. The colonoscopy was performed without difficulty. The patient tolerated the procedure well. The quality of the bowel preparation was adequate. Findings: The rectum, sigmoid colon, descending colon, transverse colon, ascending colon, cecum, appendiceal orifice and ileocecal valve appeared normal. A small polyp was found in the recto-sigmoid colon. The polyp was removed with a cold snare. Resection was complete, but the polyp tissue was not retrieved. Impression: - The rectum, sigmoid colon, descending colon, transverse colon, ascending colon, cecum, appendiceal orifice and ileocecal valve are normal. - One small polyp at the recto-sigmoid colon, removed with a cold snare. Complete resection. Polyp tissue not retrieved. Recommendation: - Repeat colonoscopy in 5 years for surveillance. Devan Dsouza MD Devan Dsouza Jr, MD 01/30/2020 9:17:08 AM Number of Addenda: 0 Note Initiated On: 01/30/2020 8:43 AM Estimated Blood Loss: Estimated blood loss: none.
== END 2020-01-30 09:43 | disposition home or self-care (01) ==
LOC: M OPP 07:45
PROVIDERS: ATTEND Surgery
DX: Z12.11 Encounter for screening for malignant neoplasm of colon (principal); Z80.0 Family history of malignant neoplasm of digestive organs; K63.5 Polyp of colon; G47.30 Sleep apnea, unspecified; E03.9 Hypothyroidism, unspecified; Z79.82 Long term (current) use of aspirin; Z79.899 Other long term (current) drug therapy; Z88.5 Allergy status to narcotic agent; Z88.8 Allergy status to other drugs, medicaments and biological substances

== ENCOUNTER → 2020-04-13 | Outpatient (CLI) | payer MEDICARE, OTHER ==
[2020-04-13 11:05] LABS: ALBUMIN 4.1 GM/DL (3.2-5.2); ALT/SGPT 26 U/L (12-78); BILIRUBIN,TOTAL 0.6 MG/DL (0.2-1.0); BLOOD UREA NITROGEN 27 MG/DL (7-18); CALCIUM LEVEL 9.3 MG/DL (8.8-10.2); CARBON DIOXIDE LEVEL 30 MEQ/L (21-32); CHLORIDE LEVEL 106 MEQ/L (98-107); CHOLESTEROL LEVEL 170 MG/DL (<200); CHOLESTEROL RISK RATIO 2.833 (<5); CREATININE FOR GFR 0.67 MG/DL (0.55-1.30); FREE T4 1.13 NG/DL (0.76-1.46); GLOMERULAR FILTRATION RATE > 60.0 (>45); GLUCOSE, FASTING 106 MG/DL (70-100); HDL CHOLESTEROL 60 MG/DL (>40); LDL CHOLESTEROL 98 MG/DL (<100); NON-HDL-C 110 MG/DL; POTASSIUM SERUM 4.5 MEQ/L (3.5-5.1); SODIUM LEVEL 140 MEQ/L (136-145); TOTAL PROTEIN 6.8 GM/DL (6.4-8.2); TRIGLYCERIDES LEVEL 59 MG/DL (<150)
== END ==
LOC: M PLALAB 08:15
PROVIDERS: ATTEND Nurse Practitioner Family
DX: I10 Essential (primary) hypertension (principal)

== ENCOUNTER → 2020-05-01 | Outpatient (CLI) | payer MEDICARE, OTHER ==
--- NOTE | 2020-05-01 13:31 | REPMRS ---
Patient History The patient states she had a clinical breast exam in 03/01 No known family history of cancer. Benign US guided breast biopsy of both breasts, January 24, 2013. Took hormonal contraceptives for 5 years. Took estrogen for 15 years beginning at age 46. 3D TOMOSYNTHESIS WAS PERFORMED. [facility] Volpara breast density c. Digital Woman Screen Mammo: May 01, 2020 - Exam #: [id number] Bilateral CC and MLO view(s) were taken. Technologist: Dilcia Gay, Technologist Prior study comparison: April 30, 2019, bilateral digital mammo screening bilat, performed at [facility]. April 24, 2018, bilateral digital mammo screening bilat, performed at [facility]. FINDINGS: The breast tissue is heterogeneously dense. This may lower the sensitivity of mammography. There has been no change in the appearance of the mammogram from the prior studies. There is a moderate amount of residual fibroglandular tissue which is fairly symmetric. There is no interval development of dominant mass, areas of architectural distortion, or clustered microcalcification typical of malignancy. Assessment: BI-RADS/ACR category 1 mammogram. Negative Mammogram. Recommendation Routine screening mammogram in 1 year (for women over age 40). This mammogram was interpreted with the aid of an FDA-approved computer-aided dectection system. Electronically Signed By: Everett Marcelino MD 05/01/20 [id number]
== END ==
LOC: M WHC 11:13
PROVIDERS: ATTEND Obstetrics & Gynecology
DX: Z12.31 Encounter for screening mammogram for malignant neoplasm of breast (principal)

== ENCOUNTER → 2021-04-12 | Outpatient (CLI) | payer MEDICARE, OTHER ==
[2021-04-12 12:13] LABS: ALBUMIN 3.7 GM/DL (3.2-5.2); ALT/SGPT 31 U/L (12-78); BILIRUBIN,TOTAL 0.6 MG/DL (0.2-1.0); BLOOD UREA NITROGEN 19 MG/DL (7-18); CALCIUM LEVEL 9.3 MG/DL (8.8-10.2); CARBON DIOXIDE LEVEL 28 MEQ/L (21-32); CHLORIDE LEVEL 107 MEQ/L (98-107); CHOLESTEROL LEVEL 164 MG/DL (<200); CHOLESTEROL RISK RATIO 3.904 (<5); CREATININE FOR GFR 0.78 MG/DL (0.55-1.30); FREE T4 1.39 NG/DL (0.76-1.46); GLOMERULAR FILTRATION RATE > 60.0 (>45); GLUCOSE, FASTING 111 MG/DL (70-100); HDL CHOLESTEROL 42 MG/DL (>40); LDL CHOLESTEROL 100 MG/DL (<100); NON-HDL-C 122 MG/DL; POTASSIUM SERUM 4.1 MEQ/L (3.5-5.1); SODIUM LEVEL 140 MEQ/L (136-145); THYROID STIMULATING HORMONE 0.759 uIU/ML (0.358-3.740); TRIGLYCERIDES LEVEL 112 MG/DL (<150)
== END ==
LOC: M PLALAB 08:05
PROVIDERS: ATTEND Nurse Practitioner Family
DX: I10 Essential (primary) hypertension (principal)

== ENCOUNTER → 2021-05-24 | Outpatient (CLI) | payer MEDICARE, OTHER ==
[~2021-05-24] MED LIST changes: +CARB1DRO11 OU; -THERSOL2 OU
== END ==
LOC: M WHC 10:36
PROVIDERS: ATTEND Advanced Practice Midwife
DX: Z12.31 Encounter for screening mammogram for malignant neoplasm of breast (principal); Z13.820 Encounter for screening for osteoporosis; R92.1 Mammographic calcification found on diagnostic imaging of breast; M85.88 Other specified disorders of bone density and structure, other site

== ENCOUNTER → 2021-12-24 | Outpatient (CLI) | payer MEDICARE, OTHER ==
[~2021-12-24] MED LIST changes: -D31000TA2 PO; +VITA100093 PO
[2021-12-24 15:58] LABS: BASO % 0.4 % (0.0-1.0); EOS # 0.1 10^3/uL (0.0-0.5); EOS % 1.6 % (0.0-3.0); HEMATOCRIT 42.4 % (36.0-47.0); HEMOGLOBIN 13.9 g/dl (12.0-15.5); LYMPH # 2.1 10^3/uL (1.5-5.0); LYMPH % 29.1 % (24.0-44.0); MEAN CORPUSCULAR HEMOGLOBIN 30.9 pg (27.0-33.0); MEAN CORPUSCULAR HGB CONC 32.8 g/dl (32.0-36.5); MEAN CORPUSCULAR VOLUME 94.2 fl (80.0-96.0); MONO # 0.5 10^3/uL (0.0-0.8); MONO % 6.5 % (2.0-8.0); NEUTROPHILS # 4.4 10^3/uL (1.5-8.5); NEUTROPHILS % 62.3 % (36.0-66.0); PLATELET COUNT, AUTOMATED 239 10^3/uL (150-450); WHITE BLOOD COUNT 7.1 10^3/uL (4.0-10.0)
[2021-12-24 16:44] LABS: ERYTHROCYTE SEDIMENTATION RATE 5 mm/hr (0-30)
[2021-12-24 16:57] LABS: C REACTIVE PROTEIN QUANTITATIV < 0.30 MG/DL (0.00-0.30); RHEUMATOID FACTOR QUANT < 10.0 IU/ML (<15.0)
== END ==
LOC: M PLALAB 14:13
PROVIDERS: ATTEND Orthopaedic Surgery
DX: M19.032 Primary osteoarthritis, left wrist (principal); Z79.899 Other long term (current) drug therapy

== ENCOUNTER → 2022-04-07 | Outpatient (CLI) | payer MEDICARE, OTHER ==
[2022-04-07 13:07] LABS: ALBUMIN 3.8 GM/DL (3.2-5.2); ALT/SGPT 34 U/L (12-78); BILIRUBIN,TOTAL 0.5 MG/DL (0.2-1.0); BLOOD UREA NITROGEN 16 MG/DL (7-18); CALCIUM LEVEL 8.9 MG/DL (8.8-10.2); CARBON DIOXIDE LEVEL 30 MEQ/L (21-32); CHLORIDE LEVEL 105 MEQ/L (98-107); CHOLESTEROL LEVEL 161 MG/DL (<200); CHOLESTEROL RISK RATIO 2.639 (<5); CREATININE FOR GFR 0.71 MG/DL (0.55-1.30); FREE T4 1.18 NG/DL (0.76-1.46); GLOMERULAR FILTRATION RATE > 60.0 (>39); GLUCOSE, FASTING 109 MG/DL (70-100); HDL CHOLESTEROL 61 MG/DL (>40); LDL CHOLESTEROL 85 MG/DL (<100); NON-HDL-C 100 MG/DL; POTASSIUM SERUM 4.2 MEQ/L (3.5-5.1); SODIUM LEVEL 138 MEQ/L (136-145); THYROID STIMULATING HORMONE 0.852 uIU/ML (0.358-3.740); TOTAL PROTEIN 6.7 GM/DL (6.4-8.2); TRIGLYCERIDES LEVEL 76 MG/DL (<150)
== END ==
LOC: M PLALAB 08:15
PROVIDERS: ATTEND Nurse Practitioner Family
DX: I10 Essential (primary) hypertension (principal); E89.0 Postprocedural hypothyroidism

== ENCOUNTER → 2022-05-17 | Outpatient (CLI) | payer MEDICARE, OTHER ==
[~2022-05-17] MED LIST changes: +[UNRECOGNIZED DRUG - CODE] PO; -[UNRECOGNIZED DRUG - CODE] PO
== END ==
LOC: M WHC 09:58
PROVIDERS: ATTEND Obstetrics & Gynecology
DX: Z12.31 Encounter for screening mammogram for malignant neoplasm of breast (principal)

== ENCOUNTER → 2022-10-25 | Outpatient (CLI) | payer MEDICARE, OTHER ==
[2022-10-25 13:29] LABS: BLOOD UREA NITROGEN 19 MG/DL (9-23); CALCIUM LEVEL 9.3 MG/DL (8.3-10.6); CARBON DIOXIDE LEVEL 30 MMOL/L (20-31); CHLORIDE LEVEL 102 MMOL/L (98-107); CREATININE FOR GFR 0.73 MG/DL (0.55-1.30); GLOMERULAR FILTRATION RATE > 60.0 (>39); GLUCOSE, FASTING 97 MG/DL (74-106); POTASSIUM SERUM 4.1 MMOL/L (3.5-5.1); SODIUM LEVEL 139 MMOL/L (136-145)
[2022-10-25 13:32] LABS: THYROID STIMULATING HORMONE 0.254 uIU/ML (0.55-4.78)
[2022-10-25 13:37] LABS: BASO # 0.1 10^3/uL (0.0-0.2); BASO % 0.9 % (0.0-1.0); EOS # 0.1 10^3/uL (0.0-0.5); EOS % 1.2 % (0.0-3.0); HEMATOCRIT 44.9 % (36.0-47.0); HEMOGLOBIN 14.7 g/dl (12.0-15.5); LYMPH # 1.6 10^3/uL (1.5-5.0); LYMPH % 24.1 % (24.0-44.0); MEAN CORPUSCULAR HEMOGLOBIN 31.3 pg (27.0-33.0); MEAN CORPUSCULAR HGB CONC 32.7 g/dl (32.0-36.5); MEAN CORPUSCULAR VOLUME 95.7 fl (80.0-96.0); MONO # 0.4 10^3/uL (0.0-0.8); MONO % 6.1 % (2.0-8.0); NEUTROPHILS # 4.6 10^3/uL (1.5-8.5); NEUTROPHILS % 67.4 % (36.0-66.0); PLATELET COUNT, AUTOMATED 257 10^3/uL (150-450); RED BLOOD COUNT 4.69 10^6/uL (4.00-5.40); WHITE BLOOD COUNT 6.8 10^3/uL (4.0-10.0)
== END ==
LOC: M PLALAB 10:24
PROVIDERS: ATTEND Nurse Practitioner Family
DX: E89.0 Postprocedural hypothyroidism (principal); I10 Essential (primary) hypertension

== ENCOUNTER → 2022-12-16 | Outpatient (CLI) | payer MEDICARE, OTHER ==
[2022-12-16 15:52] LABS: FREE T4 1.46 NG/DL (0.89-1.76)
[2022-12-16 15:53] LABS: THYROID STIMULATING HORMONE 0.446 uIU/ML (0.55-4.78)
== END ==
LOC: M PLALAB 11:16
PROVIDERS: ATTEND Nurse Practitioner Family
DX: E89.0 Postprocedural hypothyroidism (principal)

== ENCOUNTER → 2023-04-17 | Outpatient (CLI) | payer MEDICARE, OTHER ==
[2023-04-17 12:20] LABS: THYROID STIMULATING HORMONE 0.935 uIU/ML (0.55-4.78)
[2023-04-17 12:22] LABS: FREE T4 1.28 NG/DL (0.89-1.76)
[2023-04-17 12:23] LABS: ALBUMIN 3.9 G/DL (3.2-5.2); ALKALINE PHOSPHATASE 79 U/L (46-116); ALT/SGPT 22 U/L (7.0-40); AST/SGOT 19 U/L (<34); BILIRUBIN,TOTAL 0.7 MG/DL (0.3-1.2); BLOOD UREA NITROGEN 15 MG/DL (9-23); CALCIUM LEVEL 9.1 MG/DL (8.3-10.6); CARBON DIOXIDE LEVEL 29 MMOL/L (20-31); CHLORIDE LEVEL 106 MMOL/L (98-107); CHOLESTEROL LEVEL 156 MG/DL (<200); CHOLESTEROL RISK RATIO 2.72 (<5); GLOMERULAR FILTRATION RATE > 60.0 (>39); GLUCOSE, FASTING 96 MG/DL (74-106); HDL CHOLESTEROL 57.3 MG/DL (>40); LDL CHOLESTEROL 79.7 MG/DL (<100); NON-HDL-C 98.7 MG/DL; POTASSIUM SERUM 4.8 MMOL/L (3.5-5.1); SODIUM LEVEL 144 MMOL/L (136-145); TOTAL PROTEIN 6.6 G/DL (5.7-8.2); TRIGLYCERIDES LEVEL 95 MG/DL (<150)
== END ==
LOC: M PLALAB 08:15
PROVIDERS: ATTEND Nurse Practitioner Family
DX: I10 Essential (primary) hypertension (principal); E89.0 Postprocedural hypothyroidism; E78.2 Mixed hyperlipidemia

== ENCOUNTER → 2023-05-24 | Outpatient (CLI) | payer MEDICARE, OTHER | LOC: M WHC 09:57 | PROVIDERS: ATTEND Obstetrics & Gynecology | DX: Z12.31 Encounter for screening mammogram for malignant neoplasm of breast (principal); Z13.820 Encounter for screening for osteoporosis; M85.89 Other specified disorders of bone density and structure, multiple sites; R92.323 Mammographic fibroglandular density, bilateral breasts ==

== ENCOUNTER → 2024-04-24 | Outpatient (CLI) | payer MEDICARE, OTHER ==
[~2024-04-24] MED LIST changes: -GARL500C2 PO; +GARL500C6 PO
[2024-04-24 12:17] LABS: ALBUMIN 3.7 G/DL (3.2-5.2); ALKALINE PHOSPHATASE 93 U/L (35-104); ALT/SGPT 22 U/L (7.0-40); AST/SGOT 13 U/L (<34); BILIRUBIN,TOTAL 0.6 MG/DL (0.3-1.2); BLOOD UREA NITROGEN 20 MG/DL (9-23); CALCIUM LEVEL 9.5 MG/DL (8.3-10.6); CARBON DIOXIDE LEVEL 30 MMOL/L (20-31); CHLORIDE LEVEL 106 MMOL/L (98-107); CHOLESTEROL LEVEL 189 MG/DL (<200); CHOLESTEROL RISK RATIO 3.26 (<5); CREATININE FOR GFR 0.68 MG/DL (0.55-1.30); FREE T4 1.35 NG/DL (0.89-1.76); GLOMERULAR FILTRATION RATE > 60.0 (>39); GLUCOSE, FASTING 104 MG/DL (74-106); HDL CHOLESTEROL 57.8 MG/DL (>40); LDL CHOLESTEROL 110.4 MG/DL (<100); NON-HDL-C 131.2 MG/DL; POTASSIUM SERUM 4.5 MMOL/L (3.5-5.1); SODIUM LEVEL 140 MMOL/L (136-145); TRIGLYCERIDES LEVEL 104 MG/DL (<150)
== END ==
LOC: M PLALAB 08:01
PROVIDERS: ATTEND Nurse Practitioner Family
DX: I10 Essential (primary) hypertension (principal); E89.0 Postprocedural hypothyroidism; E78.2 Mixed hyperlipidemia

== ENCOUNTER → 2024-05-29 | Outpatient (CLI) | payer MEDICARE, OTHER | LOC: M WHC 10:25 | PROVIDERS: ATTEND Obstetrics & Gynecology | DX: Z12.31 Encounter for screening mammogram for malignant neoplasm of breast (principal); R92.333 Mammographic heterogeneous density, bilateral breasts ==

== ENCOUNTER 2024-12-22 20:36 | Emergency (ER) | payer MEDICARE, OTHER ==
[~2024-12-22] VITALS: Ht 152.4 cm; Wt 52.3 kg
[~2024-12-22 20:36] MED LIST changes: +ASPI81TA26 PO; -AZO YEAST; +AZO YEAST PO; +DIFI200T PO; +ESCI5SOL3 PO; +GNP1000T11 PO; +LEXA5TAB13 PO; +MULT-40 PO; +ODOR1CAP2 PO; +RISATAB3 PO; +TURM1CAP7 PO; -TURM500C3 PO; +VANC1CAP6 PO; +VITA200012 PO; +ZINC100T3 PO; +ZINC50TA17 PO; +[UNRECOGNIZED DRUG - CODE] PO
[2024-12-22] MEDS: BOOSTRIX VACCINE (TETANUS/DIPHTH/ACEL. PERTUSSIS) 0.5 ML SYR IM ONE (23:45)
[2024-12-23 00:11] LABS: INR 0.91
[2024-12-23 00:20] LABS: BASO # 0.0 10^3/uL (0.0-0.2); BASO % 0.3 % (0.0-1.0); EOS # 0.0 10^3/uL (0.0-0.5); EOS % 0.4 % (0.0-3.0); LYMPH # 1.1 10^3/uL (1.5-5.0); LYMPH % 11.3 % (24.0-44.0); MONO # 0.9 10^3/uL (0.0-0.8); MONO % 9.0 % (2.0-8.0); NEUTROPHILS # 7.9 10^3/uL (1.5-8.5); NEUTROPHILS % 78.7 % (36.0-66.0); PLATELET COUNT, AUTOMATED 253 10^3/uL (150-450)
[2024-12-23] MEDS: NS IV ONE (00:23)
[2024-12-23] MEDS: DESMOPRESSIN ACETATE IV ONE (00:23)
[2024-12-23 00:26] LABS: CALCIUM LEVEL 8.8 MG/DL (8.3-10.6); CARBON DIOXIDE LEVEL 28.0 MMOL/L (20-31); CHLORIDE LEVEL 102.0 MMOL/L (98-107); CREATININE FOR GFR 0.78 MG/DL (0.55-1.30); GLOMERULAR FILTRATION RATE 80.2 (>39); POTASSIUM SERUM 4.0 MMOL/L (3.5-5.1); SODIUM LEVEL 140.0 MMOL/L (136-145)
[2024-12-23 06:30] VITALS: BP 146/72; TEMP 97.9
[2024-12-23 06:45] VITALS: O2SAT 97
== END 2024-12-23 07:00 | disposition short-term general hospital (02) ==
LOC: M ED 20:36
DX: S01.81XA Laceration without foreign body of other part of head, initial encounter (principal); S06.6X0A Traumatic subarachnoid hemorrhage without loss of consciousness, initial encounter; S02.121A Fracture of orbital roof, right side, initial encounter for closed fracture; Y92.019 Unspecified place in single-family (private) house as the place of occurrence of the external cause; Y93.9 Activity, unspecified; Y99.9 Unspecified external cause status; W19.XXXA Unspecified fall, initial encounter; I10 Essential (primary) hypertension; E78.5 Hyperlipidemia, unspecified; Z23 Encounter for immunization; Z88.5 Allergy status to narcotic agent; Z88.8 Allergy status to other drugs, medicaments and biological substances; Z79.1 Long term (current) use of non-steroidal anti-inflammatories (NSAID); Z79.899 Other long term (current) drug therapy
CPT/HCPCS: 70450; 70486; 72125; 80048; 85025; 85610; 85730; 90471; 90715; 96374; 99285; J2597

== ENCOUNTER → 2025-04-23 | Outpatient (CLI) | payer MEDICARE, OTHER ==
[2025-04-23 10:14] LABS: BASO # 0.0 10^3/uL (0.0-0.2); BASO % 0.4 % (0.0-1.0); EOS # 0.1 10^3/uL (0.0-0.5); EOS % 1.4 % (0.0-3.0); LYMPH # 1.4 10^3/uL (1.5-5.0); LYMPH % 20.8 % (24.0-44.0); MONO # 0.5 10^3/uL (0.0-0.8); MONO % 7.8 % (2.0-8.0); NEUTROPHILS # 4.8 10^3/uL (1.5-8.5); NEUTROPHILS % 69.3 % (36.0-66.0); PLATELET COUNT, AUTOMATED 313 10^3/uL (150-450)
[2025-04-23 10:22] LABS: ALT/SGPT 17.0 U/L (7.0-40); AST/SGOT 18.0 U/L (<34); CALCIUM LEVEL 8.6 MG/DL (8.3-10.6); CARBON DIOXIDE LEVEL 31.0 MMOL/L (20-31); CHLORIDE LEVEL 102.0 MMOL/L (98-107); CHOLESTEROL LEVEL 142.0 MG/DL (<200); CHOLESTEROL RISK RATIO 2.8 (<5); CREATININE FOR GFR 0.73 MG/DL (0.55-1.30); GLOMERULAR FILTRATION RATE 86.8 (>39); LDL CHOLESTEROL 75.7 MG/DL (<100); NON-HDL-C 91.3 MG/DL; POTASSIUM SERUM 4.3 MMOL/L (3.5-5.1); SODIUM LEVEL 140.0 MMOL/L (136-145); TRIGLYCERIDES LEVEL 78.0 MG/DL (<150)
[2025-04-23 10:29] LABS: FREE T4 1.12 NG/DL (0.89-1.76)
== END ==
LOC: M PLALAB 08:37
PROVIDERS: ATTEND Nurse Practitioner Family
DX: I10 Essential (primary) hypertension (principal); E89.0 Postprocedural hypothyroidism; E78.2 Mixed hyperlipidemia

== ENCOUNTER 2025-05-29 08:23 | Day surgery (SDC) | payer MEDICARE, OTHER ==
[~2025-05-29] VITALS: Ht 152.4 cm; Wt 70.3 kg
[2025-05-29] MEDS: SCOPOLAMINE 1MG TRANSDERMAL PATCH TOP ONE (08:55)
[2025-05-29] MEDS ORDERED: LIDOCAINE 2% 100 MG/5 ML SDV (FOR ANES.) As Ordered ONE (09:01)
[2025-05-29] MEDS ORDERED: GLYCOPYRROLATE INJ 0.2 MG/ML 2 ML VIAL As Ordered ONE (09:01)
[2025-05-29 10:27] VITALS: TEMP 97.1
[2025-05-29 10:46] VITALS: BP 121/61; O2SAT 100
== END 2025-05-29 10:50 | disposition home or self-care (01) ==
LOC: M OPP 08:23
PROVIDERS: ATTEND Surgery
DX: Z12.11 Encounter for screening for malignant neoplasm of colon (principal); K64.2 Third degree hemorrhoids; G47.30 Sleep apnea, unspecified; Z88.5 Allergy status to narcotic agent; Z88.8 Allergy status to other drugs, medicaments and biological substances; Z79.899 Other long term (current) drug therapy
CPT/HCPCS: G0121; J1596